=== PATIENT | male | born 1955 | race Caucasian/White ===

== ENCOUNTER → 2023-03-31 16:26 | Outpatient (CLI) | payer OTHER, SELFPAY ==
--- NOTE | ~2023-03-31 | XR_ITS ---
EXAM: XR ankle RT min 3V DATE: 03/31/2023 16:46 HISTORY: PAIN IN RIGHT ANKLE . COMPARISON: None available. FINDINGS: Normal mineralization. No fracture or dislocation. No lytic or blastic lesion. Joint space s are mild degenerative change at the tibiotalar joint. Moderate Achilles and mild plantar enthesopat hy. No erosion or periosteal change. Mild vascular calcification within normal limits. IMPRESSION: Mild tibiotalar osteoarthritis. Plantar and Achilles enthesopathy. Reviewed, dictated and finalized at location K.
== END ==
PROVIDERS: PCP Internal Medicine; Visit Provider Internal Medicine
DX: M19.071 Primary osteoarthritis, right ankle and foot (principal)
CPT/HCPCS: 73610